=== PATIENT | female | born 1950 | race Caucasian/White ===

== ENCOUNTER 2023-08-03 08:15 | Outpatient (RCR) | payer MEDICARE, SELFPAY | END 2023-08-03 23:59 | disposition home or self-care (01) | LOC: CRHB 08:15 | PROVIDERS: ATTENDING PHYSICIAN Internal Medicine Cardiovascular Disease | DX: I25.10 Atherosclerotic heart disease of native coronary artery without angina pectoris (principal); Z95.5 Presence of coronary angioplasty implant and graft | CPT/HCPCS: 93797; 93798; G0422; G0423 ==